=== PATIENT | male | born 2000 | race Asian ===

== ENCOUNTER 2022-10-03 18:52 | Emergency (ER) | payer OTHER ==
[~2022-10-03] VITALS: Ht 167.6 cm; Wt 70.9 kg
[2022-10-03 19:48] VITALS: BP 137/70
== END 2022-10-03 20:14 | disposition home or self-care (01) ==
LOC: EMS 18:53
DX: T23.111A Burn of first degree of right thumb (nail), initial encounter (principal); V99.XXXA Unspecified transport accident, initial encounter; Y93.89 Activity, other specified; Y92.89 Other specified places as the place of occurrence of the external cause; Y99.8 Other external cause status
CPT/HCPCS: 99281; Z7502